=== PATIENT | female | born 1985 | race Caucasian/White ===

== ENCOUNTER → 2018-03-23 14:11 | Outpatient (CLI) | payer OTHER, SELFPAY ==
--- NOTE | 2018-03-23 | DI.US.S_ITS ---
PROCEDURE: US PELVIC COMPLETE INDICATIONS: DYSFUNCTIONAL UTERINE BLEEDING IUD PLACMENT TECHNIQUE: Real-time scanning was performed of the pelvic organs, with image documentation. Additional endovaginal scanning was necessary due to incomplete visualization of the adnexal and endometrial structures by transabdominal scanning. COMPARISON: None. FINDINGS: Transabdominal scanning: Limited scanning through the kidneys shows no hydronephrosis. No pathologic free abdominal or pelvic fluid. Endovaginal scanning: Uterus: Uterus is normal in size at 5.8 x 2.8 x 4.0 cm. The endometrium measures 2.0 mm in combined thickness. Intrauterine device in expected position. Ovaries: Ovaries normal bilaterally with dominant right follicular cyst measuring 12 mm. IMPRESSION: No source for menorrhagia identified. Dictated by: Maverick BELCHER Interpreted: Yvonne Braun MD on 03/23/2018 at 16:08 Approved by: Yvonne Braun M.D. on 03/23/2018 at 16:41
== END ==
PROVIDERS: PCP Nurse Practitioner Family; Visit Provider Family Medicine
DX: N93.8 Other specified abnormal uterine and vaginal bleeding (principal); Z97.5 Presence of (intrauterine) contraceptive device
CPT/HCPCS: 76830; 76856

== ENCOUNTER → 2021-04-10 08:40 | Outpatient (CLI) | payer OTHER, SELFPAY ==
[2021-04-10 12:57] LABS: COVID19 -Nasal RAPID POSITIVE (Negative)
== END ==
PROVIDERS: PCP Nurse Practitioner Family; Visit Provider Nurse Practitioner Family
DX: Z20.822 Contact with and (suspected) exposure to COVID-19 (principal); J02.9 Acute pharyngitis, unspecified; R53.83 Other fatigue; R52 Pain, unspecified
CPT/HCPCS: 87635

== ENCOUNTER → 2022-08-28 13:27 | Outpatient (CLI) | payer OTHER, SELFPAY ==
--- NOTE | 2022-08-28 | DI.US.S_ITS ---
LIMITED ULTRASOUND OF RIGHT BREAST: 08/28/2022 CLINICAL: Patient returns today to evaluate a focal asymmetry in the right breast. Comparison is made to exam dated: 08/28/2022 mammogram - [facility]. Color flow and real-time ultrasound of the right breast were performed. Lopez scale images of the real-time examination were reviewed. There is a 1 cm x 0.7 cm x 0.8 cm clustered microcysts with thick septation in the right breast at 9 o'clock middle depth 3 cm from the nipple. This correlates with mammography findings. Other cysts are present, benign. 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 Other cysts are present, benign. A follow-up ultrasound in 6 months is recommended. This exam was interpreted at Station ID: [id number]. Electronically Signed By: Lavell thibodeaux/:08/28/2022 14:51:33 Entry: - 08/29/2022 09:55:45 Ultrasound BI-RADS: 3 Probably benign
--- NOTE | 2022-08-28 | DI.US.S_ITS ---
LIMITED ULTRASOUND OF LEFT BREAST: 08/28/2022 CLINICAL: Palpable left breast lump by physician. Comparison is made to exam dated: 08/28/2022 mammogram - [facility]. Color flow, real-time, and continuous wave Doppler ultrasound of the left breast were performed. There is a 1.9 cm x 2 cm x 1 cm probable clustered microcysts with thick septation in the left breast at 2 o'clock posterior depth 1 cm from the nipple, incidental, corresponding with mammogram. There also is a benign 1.5 cm x 1.1 cm x 1.8 cm simple cyst in the left breast at 2 o'clock anterior depth 1 cm from the nipple. This correlates as palpated and with mammogram. Numerous other benign cysts are present. IMPRESSION: PROBABLY BENIGN There is a 1.9 cm x 2 cm x 1 cm probable clustered microcysts with thick septation in the left breast at 2 o'clock posterior depth 1 cm from the nipple, incidental, corresponding with mammogram. This is probably benign. A follow-up ultrasound in 6 months is recommended to demonstrate stability. There also is a benign 1.5 cm x 1.1 cm x 1.8 cm simple cyst in the left breast at 2 o'clock anterior depth 1 cm from the nipple. This correlates as palpated and with mammogram. Numerous other benign cysts are present. Clinical followup is also recommended. This exam was interpreted at Station ID: [id number]. Electronically Signed By: Lavell Corey M.D. lc/:08/28/2022 14:54:50 letter sent: Followup Recommended Ultrasound BI-RADS: 3 Probably benign
--- NOTE | 2022-08-28 | DI.MG.S_ITS ---
BILATERAL DIGITAL DIAGNOSTIC MAMMOGRAM 3D/2D: 08/28/2022 CLINICAL: Left lump. Baseline. No prior exams were available for comparison. Both breasts are extremely dense, which lowers the sensitivity of mammography (category d />75% glandular tissue). Bilateral oval circumscribed masses are present. There is a focal asymmetry in the right breast at 9 o'clock middle depth, seems more prominent than the masses. There is an oval mass with a circumscribed margin in the left breast at 1 o'clock middle depth. This correlates as palpated. No other significant masses or calcifications are seen in either breast. IMPRESSION: INCOMPLETE: NEEDS ADDITIONAL IMAGING EVALUATION Bilateral oval circumscribed masses are present. There is a focal asymmetry in the right breast at 9 o'clock middle depth, seems more prominent than the other masses, an ultrasound is recommended. There is an oval mass with a circumscribed margin in the left breast at 1 o'clock middle depth. This correlates as palpated. An ultrasound is recommended. Other bilateral oval circumscribed masses are considered benign. Based on the Tyrer Cuzick model (a risk assessment model) the patient's lifetime risk is 13.3% and her 10 year risk is 1.2%. According to the ACR, ACS, and NCCN guidelines, an annual breast MRI exam along with mammogram is recommended if the patient's lifetime risk is 20% or greater. This exam was interpreted at Station ID: [id number]. NOTE: For mammograms, a report in lay terms will be sent to the patient. Approximately 15% of breast malignancies will not be visualized mammographically. In the management of a palpable breast mass, a negative mammogram must not discourage biopsy of a clinically suspicious lesion. Electronically Signed By: Lavell Corey M.D. lc/:08/28/2022 14:49:38 ACR BI-RADS Category 0: Incomplete 3340F
== END ==
PROVIDERS: PCP Internal Medicine; Referring Provider Internal Medicine; Visit Provider Internal Medicine
DX: N63.21 Unspecified lump in the left breast, upper outer quadrant (principal); N64.89 Other specified disorders of breast; N60.01 Solitary cyst of right breast
CPT/HCPCS: 76642; 77066; G0279

== ENCOUNTER → 2023-02-26 14:18 | Outpatient (CLI) | payer OTHER, SELFPAY ==
--- NOTE | 2023-02-26 | DI.US.S_ITS ---
LIMITED ULTRASOUND OF LEFT BREAST: 02/26/2023 CLINICAL: 6 month follow-up of cysts. Comparison is made to exams dated: 08/28/2022 ultrasound, 08/28/2022 mammogram, and 12/28/2007 [facility]. Color flow and real-time ultrasound of the left breast 2 o'clock region were performed. Previously visualized probably benign clustered microcysts at 2 o'clock, 1 cm from the nipple are no longer visualized. There multiple simple cysts seen incidentally. IMPRESSION: BENIGN Left breast simple cysts at 2 o'clock are benign. No sonographic evidence of malignancy. Recommend routine screening mammogram starting at age 40. Findings and recommendations were conveyed to the patient during today's evaluation. This exam was interpreted at Station ID: [id number]. Electronically Signed By: Laura Jones M.D., PH.D eb/:02/27/2023 15:40:55 Entry: - 02/27/2023 15:40:55 letter sent: Normal Exam Ultrasound BI-RADS: 2 Benign
--- NOTE | 2023-02-26 | DI.US.S_ITS ---
LIMITED ULTRASOUND OF RIGHT BREAST: 02/26/2023 CLINICAL: 6 month follow-up of cysts. Comparison is made to exams dated: 08/28/2022 ultrasound, 08/28/2022 mammogram, and 12/28/2007 [facility]. Color flow and real-time ultrasound of the right breast 9 o'clock region were performed. There is a cluster of microcysts at 9 o'clock, 3 cm from the nipple measuring 1.2 cm, not significantly changed since prior ultrasound 08/28/2022. IMPRESSION: BENIGN Right breast clustered microcysts at 9 o'clock are benign. No sonographic evidence of malignancy. Recommend routine screening mammogram starting at age 40. Findings and recommendations were conveyed to the patient during today's evaluation. This exam was interpreted at Station ID: [id number]. Electronically Signed By: Laura Jones M.D., PH.D eb/:02/26/2023 16:14:09 letter sent: Normal Exam Ultrasound BI-RADS: 2 Benign
== END ==
PROVIDERS: PCP Internal Medicine; Referring Provider Internal Medicine; Visit Provider Internal Medicine
DX: N63.20 Unspecified lump in the left breast, unspecified quadrant (principal); N60.02 Solitary cyst of left breast; N60.01 Solitary cyst of right breast
CPT/HCPCS: 76642

== ENCOUNTER → 2025-03-28 12:03 | Outpatient (CLI) | payer OTHER, SELFPAY ==
--- NOTE | 2025-03-28 12:03 | DI.MG.S_ITS ---
MM screening mammo BI: 03/28/2025. BI-RADS: 2 CLINICAL: 39-year old female for bilateral screening mammogram. Tyrer-Cuzick lifetime risk of 11.8%. No personal or first-degree family history of breast cancer. PRIOR EXAMS 02/26/2023, 08/28/2022. MAMMOGRAPHY TECHNIQUE: 2D and 3D (tomosynthesis) digital mammographic views obtained, with additional images as needed for full coverage. Current study was also evaluated with a Computer Aided Detection (CAD) system. DENSITY C. The breasts are heterogeneously dense, which may obscure small masses. MAMMOGRAPHY FINDINGS Bilateral: There are multiple bilateral benign appearing round and oval circumscribed masses. There are no suspicious masses, calcifications, or other findings in the breast. IMPRESSION: * No evidence of malignancy with benign findings. RECOMMENDATIONS Bilateral * Annual screening mammography. OVERALL ASSESSMENT CATEGORY BI-RADS-2: Benign. The [employer] recommends annual screening mammography beginning at age 40 for women with average risk of breast cancer. ELECTRONICALLY SIGNED: Laura Jones M.D. on 04/01/2025 at 02:57:48 AM PT Interpreting Station ID: [id number]
== END ==
LOC: MAMMO 12:03
PROVIDERS: PCP Family Medicine; Referring Provider Family Medicine; Visit Provider Family Medicine
DX: Z12.31 Encounter for screening mammogram for malignant neoplasm of breast (principal); R92.333 Mammographic heterogeneous density, bilateral breasts
CPT/HCPCS: 77063; 77067